=== PATIENT | female | born 1945 | race Caucasian/White ===

== ENCOUNTER 2017-12-04 15:28 | Emergency (ER) | payer MEDICARE, OTHER ==
[~2017-12-04] VITALS: Ht 160 cm; Wt 72.6 kg
[2017-12-04] MEDS ORDERED: LIDOCAINE 1% HCL (LOCAL ANESTH.) INJ 20ML MDV IJ ONE (17:30)
[2017-12-04] MEDS ORDERED: TETANUS-DIPTH-ACEL PERTUSSIS 0.5ML SYRG IM ONE (18:00)
[2017-12-04 18:01] VITALS: BP 218/74
== END 2017-12-04 17:55 | disposition left against medical advice (07) ==
LOC: ER 15:32
DX: S61.411A Laceration without foreign body of right hand, initial encounter (principal); I10 Essential (primary) hypertension; W01.0XXA Fall on same level from slipping, tripping and stumbling without subsequent striking against object, initial encounter; Y93.89 Activity, other specified; Y92.59 Other trade areas as the place of occurrence of the external cause; Y99.8 Other external cause status
CPT/HCPCS: 12005; 90471; 90715; 99283; J2001

== ENCOUNTER 2021-01-04 12:29 | Inpatient (IN) | payer MEDICARE, BC ==
[~2021-01-04] VITALS: Ht 157.5 cm; Wt 75.5 kg
[2021-01-04] MEDS ORDERED: cloNIDine HCL 0.1 MG TAB ONE (12:31)
[2021-01-04] MEDS ORDERED: cloNIDine HCL 0.1 MG TAB PO ONE (12:45)
[2021-01-04 16:28] LABS: Basophils # (auto) 0 10 ^3/uL (0-0.2); Basophils % (auto) 0.8 % (0.0-2.0); Eosinophils # (auto) 0.2 10 ^3/uL (0-0.8); Eosinophils % (auto) 3.1 % (0.0-7.0); Hematocrit 33.4 % (36.0-46.0); Hemoglobin 10.8 g/dL (12.2-16.2); Lymphocytes # (auto) 1.5 10 ^3/uL (0.4-5.4); Lymphocytes % (auto) 25.5 % (10.0-50.0); Mean Corpuscular Hemoglobin 31.7 pg (28.0-32.0); Mean Corpuscular Hgb Conc. 32.2 g/dL (32.0-36.0); Mean Corpuscular Volume 98.4 fL (80.0-100.0); Monocytes # (auto) 0.5 10 ^3/uL (0-1.3); Monocytes % (auto) 8.7 % (0.0-12.0); Neutrophils # (auto) 3.6 10 ^3/uL (1.6-8.6); Neutrophils % (auto) 61.9 % (37.0-80.0); Red Blood Cells 3.39 10^6/uL (4.0-5.20); Red Cell Distribution Width 13.6 % (11.8-14.3); White Blood Cell 5.9 10^3/uL (4.4-10.8)
[2021-01-04 16:46] LABS: Albumin 3.4 g/dL (3.4-5.0)
[2021-01-04 16:49] LABS: Bilirubin, Total 0.4 mg/dL (0.2-1.0); Total Protein 6.7 g/dL (6.4-8.2)
[2021-01-04 17:00] LABS: BUN/Creatinine Ratio 13.9
[2021-01-04] MEDS ORDERED: ALBUTEROL SULF 2.5 MG/0.5ML(0.5%) NEB SOLN NEB ONE (17:30)
[2021-01-04] MEDS ORDERED: SODIUM ZIRCONIUM CYCL 10 GM PAK PO ONE (17:30)
[2021-01-04] MEDS ORDERED: InsuLIN REG 1unit/0.01ml Soln (100units/ml) IV ONE (17:30)
[2021-01-04] MEDS ORDERED: SODIUM BICARBONATE 8.4% INJ 50ML SYRINGE IV ONE (17:30)
[2021-01-04] MEDS ORDERED: FUROSEMIDE 20 MG/2 ML VIAL IV ONE (17:30)
[2021-01-04] MEDS ORDERED: CALCIUM GLUC 1,000mg/50ml-NS 50 ML IV ONE (17:30)
[2021-01-04] MEDS ORDERED: DEXTROSE (50%) 50ML SYRG IV ONE (17:30)
[2021-01-04] MEDS ORDERED: MORPHINE SULFATE INJECTION 2 MG/ML SYRG IV PRN (18:15)
[2021-01-04] MEDS ORDERED: NITROGLYCERIN 0.4 MG SL TAB SL PRN (18:15)
[2021-01-04 20:00] VITALS: BP 158/64
[2021-01-04 22:00] VITALS: BP 158/64
[2021-01-04] MEDS: LABETALOL HCL 5 MG/ML 4ML SYRINGE IV PRN ×2 (22:02→22:03)
[2021-01-05] MEDS ORDERED: ERGO1CAP12 PO (03:30)
[2021-01-05] MEDS ORDERED: METO25TA93 PO (03:30)
[2021-01-05] MEDS ORDERED: LEVO125T7 PO (03:30)
[2021-01-05] MEDS ORDERED: PATI1POW PO (03:30)
[2021-01-05] MEDS ORDERED: CHOL4POW4 PO (03:30)
[2021-01-05] MEDS ORDERED: ALLO100T PO (03:30)
[2021-01-05] MEDS ORDERED: AZIL40TA2 PO (03:30)
[2021-01-05 05:00] VITALS: BP 159/74
[2021-01-05 05:53] LABS: Calcium 9.1 mg/dL (8.5-10.1); Potassium 4.4 mmol/L (3.5-5.1)
[2021-01-05 05:57] LABS: BUN/Creatinine Ratio 13.2
[2021-01-05] MEDS: LABETALOL HCL 5 MG/ML 4ML SYRINGE IV PRN (07:49)
[2021-01-05 09:00] VITALS: BP 161/71
[2021-01-05] MEDS: amLODIPine BESYLATE 5 MG TAB PO SCH (09:28)
[2021-01-05] MEDS ORDERED: FAMOTIDINE 20 MG TAB PO ONE (12:15)
[2021-01-05] MEDS ORDERED: CHOLECALCIFEROL (VITD3) 2,000 UNIT CAP/TAB PO ONE (12:15)
[2021-01-05] MEDS ORDERED: FAMOTIDINE (10MG/ML) 2ML VL IV ONE (12:15)
[2021-01-05] MEDS ORDERED: hydrALAZINE HCL 20 MG/ML VL IV PRN (12:15)
[2021-01-05 13:00] VITALS: BP 159/69
[2021-01-05] MEDS ORDERED: FUROSEMIDE 20 MG TAB PO ONE (14:30)
[2021-01-05] MEDS: hydrALAZINE HCL 25 MG TAB PO SCH ×2 (14:41→21:10)
[2021-01-05] MEDS: FAMOTIDINE 20 MG TAB PO SCH (17:00)
[2021-01-05 20:23] LABS: Urine Bacteria FEW /hpf (None Seen); Urine Blood Negative /uL (Negative); Urine Specific Gravity 1.006 (1.001-1.035); Urine WBC 10 /hpf (0 - 5)
[2021-01-05 22:00] VITALS: BP 158/67
[2021-01-05] MEDS ORDERED: FAMOTIDINE (10MG/ML) 2ML VL IV SCH (22:00)
[2021-01-05] MEDS: CHOLESTYRAMINE 4 GM POWDER PO SCH ×3 (22:13→23:30)
[2021-01-06 00:29] VITALS: BP 150/64
[2021-01-06 05:00] VITALS: BP 151/55
[2021-01-06 05:13] LABS: Basophils # (auto) 0.1 10 ^3/uL (0-0.2); Basophils % (auto) 0.8 % (0.0-2.0); Eosinophils # (auto) 0.2 10 ^3/uL (0-0.8); Hematocrit 32.7 % (36.0-46.0); Hemoglobin 10.9 g/dL (12.2-16.2); Lymphocytes # (auto) 1.8 10 ^3/uL (0.4-5.4); Lymphocytes % (auto) 29.8 % (10.0-50.0); Mean Corpuscular Hemoglobin 32.2 pg (28.0-32.0); Mean Corpuscular Hgb Conc. 33.2 g/dL (32.0-36.0); Mean Corpuscular Volume 96.9 fL (80.0-100.0); Monocytes # (auto) 0.7 10 ^3/uL (0-1.3); Monocytes % (auto) 10.9 % (0.0-12.0); Neutrophils # (auto) 3.3 10 ^3/uL (1.6-8.6); Neutrophils % (auto) 54.5 % (37.0-80.0); Nucleated Red Blood Cells % 0.2 %; Red Blood Cells 3.37 10^6/uL (4.0-5.20); Red Cell Distribution Width 13.4 % (11.8-14.3)
[2021-01-06 05:19] LABS: INR 1.05 (0.9-1.15); Partial Thromboplastin Time 24.8 sec (23.6-33.0)
[2021-01-06 05:22] LABS: Albumin 3.1 g/dL (3.4-5.0); Anion Gap 7 (5-15); Blood Urea Nitrogen 20 mg/dL (7-18); Calcium 8.6 mg/dL (8.5-10.1); Carbon Dioxide 27 mmol/L (21-32); Chloride 100 mmol/L (98-107); Glucose 90 mg/dL (74-106); Magnesium 1.3 mg/dL (1.6-2.6); Potassium 4.7 mmol/L (3.5-5.1); Sodium 134 mmol/L (136-145)
[2021-01-06 05:28] LABS: Alanine Aminotransferase 35 U/L (13-56); Alkaline Phosphatase 119 U/L (45-117); Aspartate Aminotransferase 29 U/L (15-37); BUN/Creatinine Ratio 12.4; Bilirubin, Total 0.6 mg/dL (0.2-1.0); GFR African American 40 mL/min; GFR Non-African American 33 mL/min; Total Protein 6.5 g/dL (6.4-8.2); Uric Acid 5.8 mg/dL (2.6-6.0)
[2021-01-06] MEDS: hydrALAZINE HCL 25 MG TAB PO SCH (06:02)
[2021-01-06] MEDS ORDERED: LEVOTHYROXINE SODIUM 100 MCG TAB PO SCH (07:00)
[2021-01-06] MEDS ORDERED: LEVOTHYROXINE SODIUM 25 MCG TAB PO SCH (07:00)
[2021-01-06 09:00] VITALS: BP 137/71
[2021-01-06] MEDS: FAMOTIDINE 20 MG TAB PO SCH (09:47)
[2021-01-06] MEDS: amLODIPine BESYLATE 5 MG TAB PO SCH (09:48)
[2021-01-06] MEDS ORDERED: ALLOPURINOL 100 MG TAB PO SCH (10:00)
[2021-01-06] MEDS ORDERED: CINACALCET HYDROCHLORIDE 30 MG TAB PO SCH (10:00)
[2021-01-06] MEDS ORDERED: CHOLECALCIFEROL (VITD3) 2,000 UNIT CAP/TAB PO SCH (10:00)
[2021-01-06] MEDS ORDERED: CHOL4POW4 PO (13:46)
[2021-01-06] MEDS ORDERED: AZIL40TA2 PO (13:46)
[2021-01-06] MEDS ORDERED: ERGO1CAP12 PO (13:46)
[2021-01-06] MEDS ORDERED: LEVO125T7 PO (13:46)
[2021-01-06] MEDS ORDERED: PATI1POW PO (13:46)
[2021-01-06] MEDS ORDERED: METO25TA93 PO (13:46)
[2021-01-06] MEDS ORDERED: ALLO100T PO (13:46)
== END 2021-01-06 12:03 | disposition home or self-care (01) | DRG 640 ==
LOC: ER 12:29 → TELE-CENTR 18:02
PROVIDERS: ADMIT Nurse Practitioner Acute Care; ATTEND Nurse Practitioner Acute Care
DX: E87.5 Hyperkalemia (principal); N17.0 Acute kidney failure with tubular necrosis; E78.5 Hyperlipidemia, unspecified; I12.9 Hypertensive chronic kidney disease with stage 1 through stage 4 chronic kidney disease, or unspecified chronic kidney disease; Z20.822 Contact with and (suspected) exposure to COVID-19; N18.32 Chronic kidney disease, stage 3b; D63.1 Anemia in chronic kidney disease; I16.0 Hypertensive urgency; Z79.899 Other long term (current) drug therapy; Z82.49 Family history of ischemic heart disease and other diseases of the circulatory system
CPT/HCPCS: 36415; 80048; 80053; 81001; 82306; 82962; 83735; 83880; 83970; 84100; 84132; 84443; 84484; 84550; 85025; 85610; 85730; 87426; 93005; 94640; 96365; 96375; 99291; G0378; J1815; J3490

== ENCOUNTER 2023-08-14 10:52 | Emergency (ER) | payer MEDICARE, BC ==
[~2023-08-14] VITALS: Ht 157.5 cm; Wt 61.5 kg
[~2023-08-14 10:52] MED LIST: ALLO100T PO; AZIL40TA2 PO; CHOL4POW33 PO; ERGO1CAP12 PO; LEVO125T7 PO; METO25TA93 PO; PATI1POW PO
[2023-08-14] MEDS: ACETAMINOPHEN 325 MG TAB PO ONE (11:36)
[2023-08-14 11:52] VITALS: BP 194/63; PULSE 71; RESP 18; TEMP 98; O2SAT 99
== END 2023-08-14 12:26 | disposition home or self-care (01) ==
LOC: ER 10:52
DX: S93.402A Sprain of unspecified ligament of left ankle, initial encounter (principal); I12.0 Hypertensive chronic kidney disease with stage 5 chronic kidney disease or end stage renal disease; N18.6 End stage renal disease; X50.1XXA Overexertion from prolonged static or awkward postures, initial encounter; Y93.89 Activity, other specified; Y92.89 Other specified places as the place of occurrence of the external cause; Y99.8 Other external cause status
CPT/HCPCS: 73610; 73630